=== PATIENT | female | born 1995 | race Caucasian/White ===

== ENCOUNTER 2017-04-12 14:05 | Emergency (ER) | payer BC ==
[2017-04-12 14:10] VITALS: BMI 34.7
[2017-04-12 14:14] VITALS: BP 122/80; PULSE 99; TEMP 98.2; O2SAT 99
--- NOTE | 2017-04-12 14:52 | C.PDOC ---
History Of Present Illness 22 y/o female presents to ED with complaint of swelling to the tip of her tongue for 2 days. Patient reports swelling and pain is localized to the area where she had a tongue piercing. Notes she has since taken out the piercing. Otherwise, denies fever, chills, throat pain or swelling, nasal congestion, headache, or other associated symptoms. Time Seen by Provider: 04/12/17 14:21 Chief Complaint (Nursing): Abnormal Skin Integrity History Per: Patient History/Exam Limitations: no limitations Onset/Duration Of Symptoms: Persistent Current Symptoms Are (Timing): Still Present Location Of Injury: Anterior: Mouth (tongue) Quality Of Symptoms: Painful, Swollen. denies: Draining Recent travel outside of the [place]: No Past Medical History Reviewed: Historical Data, Nursing Documentation, Vital Signs Vital Signs: Last Vital Signs Temp 98.2 F 04/12/17 14:10 Pulse 99 H 04/12/17 14:10 Resp 18 04/12/17 15:37 BP 122/80 04/12/17 14:10 Pulse Ox 99 04/12/17 15:39 - Medical History PMH: Asthma Surgical History: Tonsillectomy - [facility] Procedures TONSILLECTOMY/ADENOIDEC (05/15/13) Family History: States: No Known Family Hx - Social History Hx Tobacco Use: No Hx Alcohol Use: No Hx Substance Use: No - Immunization History Hx Tetanus Toxoid Vaccination: No Hx Influenza Vaccination: No Hx Pneumococcal Vaccination: No Review Of Systems Except As Marked, All Systems Reviewed And Found Negative. Constitutional: Negative for: Fever, Chills ENT: Positive for: Other (tongue swelling and pain). Negative for: Nose Congestion, Throat Pain, Throat Swelling Respiratory: Negative for: Cough Skin: Negative for: Rash Physical Exam - Physical Exam Appears: Non-toxic, No Acute Distress Skin: Normal Color, Warm, Dry Head: Atraumatic, Normacephalic Eye(s): bilateral: Normal Inspection, PERRL, EOMI Ear(s): Bilateral: Normal Nose: Normal Oral Mucosa: Moist Tongue: Swelling (small pea-sized area of swelling and tenderness, mid tip of the tongue. No fluctuance), No Bleeding, No Erythema Lips: Normal Appearing, No Swelling Throat: Normal, No Erythema, No Exudate, No Drooling Neck: Normal ROM, Supple Lymphatic: Normal Exam Cardiovascular: Rhythm Regular Respiratory: Normal Breath Sounds Neurological/Psych: Oriented x3, Normal Speech, Normal Cognition, Normal Motor Gait: Steady ED Course And Treatment O2 Sat by Pulse Oximetry: 99 (RA) Pulse Ox Interpretation: Normal Progress Note: Pt notes allergic to penicillin. Treated with Motrin and Cleocin. On reeassessment, pt resting comfortably, and in no acute distress. Advised to take medications as directed and to follow up with PMD/clinic for further evaluation. Disposition - Disposition Referrals: Deyanira Najera DMD [Staff Provider] - Disposition: HOME/ ROUTINE Disposition Time: 15:24 Condition: GOOD Additional Instructions: Follow up with the medical doctor within 1-2 days. Return if worsened Prescriptions: Clindamycin [Cleocin] 300 mg PO TID #29 cap Ibuprofen [Motrin] 600 mg PO TID #21 tab traMADol [Ultram] 50 mg PO Q6 PRN #20 tab PRN Reason: Pain Instructions: Cellulitis (ED) - Clinical Impression Clinical Impression: Cellulitis - PA / [employer] OTHER RANKS / Resident Statement MD/DO has reviewed & agrees with the documentation as recorded. - Scribe Statement The provider has reviewed the documentation as recorded by the Scribnakul Kirkpatrick All medical record entries made by the Shubham were at my direction and personally dictated by me. I have reviewed the chart and agree that the record accurately reflects my personal performance of the history, physical exam, medical decision making, and the department course for this patient. I have also personally directed, reviewed, and agree with the discharge instructions and disposition.
[2017-04-12 15:39] VITALS: RESP 18
== END 2017-04-12 15:39 | disposition home or self-care (01) ==
LOC: SUPCPDRO 14:05 → C.ER 14:05
DX: K14.0 Glossitis (principal)

== ENCOUNTER 2017-12-19 10:59 | Emergency (ER) | payer BC ==
[2017-12-19 12:31] VITALS: BMI 40.0
[2017-12-19 12:40] VITALS: RESP 18
--- NOTE | 2017-12-19 14:47 | C.PDOC ---
History Of Present Illness 22 y/o female presents to the ER complaining of pain in the left neck which has been present for the past 3 days. Patient states that the pain radiates to the left side of the shinto and the area behind he left ear. Patient reports that the pain is worse with movement. Patient denies any discharge, fever, chills, and other complaints. Time Seen by Provider: 12/19/17 13:18 Chief Complaint (Nursing): ENT Problem History Per: Patient History/Exam Limitations: no limitations Onset/Duration Of Symptoms: Days Current Symptoms Are (Timing): Still Present Severity: Moderate Past Medical History Reviewed: Historical Data, Nursing Documentation, Vital Signs Vital Signs: Last Vital Signs Temp 98.1 F 12/19/17 15:00 Pulse 61 12/19/17 15:00 Resp 18 12/19/17 15:00 BP 116/65 12/19/17 15:00 Pulse Ox 100 12/19/17 17:15 - Medical History PMH: Asthma Surgical History: Tonsillectomy - [facility] Procedures TONSILLECTOMY/ADENOIDEC (05/15/13) Family History: States: No Known Family Hx - Social History Hx Tobacco Use: No Hx Alcohol Use: No Hx Substance Use: No - Immunization History Hx Tetanus Toxoid Vaccination: No Hx Influenza Vaccination: Yes Hx Pneumococcal Vaccination: No Review Of Systems Except As Marked, All Systems Reviewed And Found Negative. Constitutional: Negative for: Fever, Chills Musculoskeletal: Positive for: Neck Pain Neurological: Negative for: Weakness, Numbness Physical Exam - Physical Exam Appears: Non-toxic, No Acute Distress Skin: Normal Color, Warm Head: Atraumatic, Normacephalic Eye(s): bilateral: Normal Inspection Ear(s): Bilateral: Normal (no mastoid tenderness) Nose: Normal Oral Mucosa: Moist Throat: Normal, No Erythema, No Exudate Neck: No Midline Cervical Tenderness, Supple, Other (SCM muscle spasm) Lymphatic: No Adenopathy Chest: Symmetrical Cardiovascular: Rhythm Regular Respiratory: Normal Breath Sounds, No Accessory Muscle Use, No Rales, No Rhonchi , No Wheezing Extremity: Normal ROM Neurological/Psych: Oriented x3, Normal Speech, Normal Motor, Normal Sensation ED Course And Treatment O2 Sat by Pulse Oximetry: 100 (RA) Pulse Ox Interpretation: Normal Progress Note: Patient given Valium PO and Motrin PO. Patient discharged and told to follow up with PCP In 1-2 days. Disposition - Disposition Disposition: HOME/ ROUTINE Disposition Time: 14:44 Condition: STABLE Additional Instructions: Follow up with your PMD within 1-2 days. Return to ED if feel worse. Prescriptions: Cyclobenzaprine [Cyclobenzaprine HCl] 10 mg PO TID #30 tab Lidocaine 4% [Lidocaine 4% 50 ml Topical (or)] 1 appl TOP QID #1 bottle Ibuprofen [Motrin Tab] 600 mg PO Q8 #30 tab Instructions: Muscle Spasm (ED) Forms: [facility] (Slovenian) - Clinical Impression Clinical Impression: Neck muscle spasm - PA / MANA[employer] / Resident Statement MD/DO has reviewed & agrees with the documentation as recorded. - Scribe Statement The provider has reviewed the documentation as recorded by the Luciaibe Ania Vargas Provider Attestation All medical record entries made by the Luciaibe were at my direction and personally dictated by me. I have reviewed the chart and agree that the record accurately reflects my personal performance of the history, physical exam, medical decision making, and the department course for this patient. I have also personally directed, reviewed, and agree with the discharge instructions and disposition.
[2017-12-19 15:14] VITALS: BP 116/65; PULSE 61; TEMP 98.1
[2017-12-19 17:05] VITALS: O2SAT 100
== END 2017-12-19 15:00 | disposition home or self-care (01) ==
LOC: C.ER 10:59
DX: M62.838 Other muscle spasm (principal)

== ENCOUNTER 2018-08-07 17:40 | Emergency (ER) | payer BC ==
[2018-08-07 17:41] VITALS: BMI 40.0
[2018-08-07 18:17] VITALS: BP 120/78; PULSE 68; RESP 18; TEMP 97.3; O2SAT 99
--- NOTE | 2018-08-07 19:47 | C.PDOC ---
History Of Present Illness 23 year old female presents to the ED for an evaluation of left knee pain and swelling since yesterday status post fall that occurred one day ago. She denies any weakness, numbness, tingling, or any other injuries. Chief Complaint (Nursing): Lower Extremity Problem/Injury History Per: Patient History/Exam Limitations: no limitations Onset/Duration Of Symptoms: Days (1) Current Symptoms Are (Timing): Still Present - Knee Description Of Injury: Fell Past Medical History Reviewed: Historical Data, Nursing Documentation, Vital Signs Vital Signs: Last Vital Signs Temp 97.3 F L 08/07/18 18:14 Pulse 68 08/07/18 18:14 Resp 18 08/07/18 18:14 BP 120/78 08/07/18 18:14 Pulse Ox 99 08/07/18 18:14 - Medical History PMH: Asthma Surgical History: Tonsillectomy - [facility] Procedures TONSILLECTOMY/ADENOIDEC (05/15/13) Family History: States: No Known Family Hx - Social History Hx Tobacco Use: No Hx Alcohol Use: No Hx Substance Use: No - Immunization History Hx Tetanus Toxoid Vaccination: No Hx Influenza Vaccination: Yes Hx Pneumococcal Vaccination: No Review Of Systems Except As Marked, All Systems Reviewed And Found Negative. Musculoskeletal: Positive for: Other (left knee pain ) Neurological: Negative for: Weakness, Numbness Physical Exam - Physical Exam Appears: Non-toxic Skin: Warm, Dry Head: Normacephalic Eye(s): bilateral: Normal Inspection Nose: Normal Oral Mucosa: Moist Extremity: Normal ROM, Tenderness (mild tenderness to left knee), Capillary Refill (less than 2 sec to left knee), No Deformity Neurological/Psych: Oriented x3, Normal Speech Gait: Steady ED Course And Treatment O2 Sat by Pulse Oximetry: 99 (RA) Pulse Ox Interpretation: Normal - Other Rad left knee xray X-Ray: Viewed By Me, Read By Radiologist Interpretation: No fracture Progress Note: Patient treated with Ibuprofen. XR of left knee ordered. Images show no fracture or dislocation. On reassessment, patient reports feeling better. Patient will be given knee immobilizer and crutches and will be instructed on how to use them. Patient will be given follow up for family services specialist. Disposition - Disposition Referrals: Hemal Tovar MD [Staff Provider] - Disposition: HOME/ ROUTINE Disposition Time: 20:07 Condition: STABLE Additional Instructions: Follow up with Orthopedist within 1-2 days. Return to ED if feel worse. Prescriptions: Ibuprofen [Motrin Tab] 600 mg PO Q8 #30 tab Instructions: Knee Pain Forms: [facility] (Guatemalan) - Clinical Impression Clinical Impression: Knee contusion
--- NOTE | 2018-08-08 08:51 | RAD ---
Date of service: 08/07/2018 PROCEDURE: Left Knee Radiographs. HISTORY: Pain. COMPARISON: None. FINDINGS: BONES: Normal. No fracture. JOINTS: Normal. No osteoarthritis. JOINT EFFUSION: None. OTHER FINDINGS: None. IMPRESSION: Normal radiographs of the left knee.
== END 2018-08-07 20:21 | disposition home or self-care (01) ==
LOC: C.ER 17:40
DX: S80.02XA Contusion of left knee, initial encounter (principal); W19.XXXA Unspecified fall, initial encounter